=== PATIENT | male | born 1945 | race Caucasian/White ===

== ENCOUNTER 2018-12-30 16:04 | Emergency (ER) | payer MEDICARE ==
[2018-12-30] MEDS ORDERED: NS 0.9% 1000 ML** 2,000 ML IV ONE (17:33)
[2018-12-30] MEDS ORDERED: cloNIDine TAB* 0.1 MG PO ONE (17:44)
--- NOTE | 2018-12-30 17:46 | ED ---
Abdominal Pain/Male - HPI Summary HPI Summary: 73 yo male presents with diarrhea. He tells me that he has had had a bowel movement for 2 days, which is unusual for him. Last night he had one large BM and some lower abdominal cramping. He went to bed. This morning he felt fine, had coffee with his breakfast, and then went to [employer] festival with his . While at the festival he began to have generalized abdominal cramping again and had a large BM. He came to the ED because abdominal cramping continued. Currently he feels improved after having another large BM in the ED, but the abdominal cramping returns before having another a BM. He denies fever, chills, headache, dizziness, SOB, chest pain, nausea, vomiting, dysuria. He denies drug or alcohol use today. His BP is very high today. 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 He tells me that his PCP placed him on a holter monitor to detect for underlying conditions and he is scheduled to follow up with PCP angelia the next 2 weeks. He was not placed on any medication for HTN. He does not smoke and admits to drinking very rarely. - History of Current Complaint Chief Complaint: EDAbdPain Stated Complaint: ABD PAIN PER EMS Time Seen by Provider: 12/30/18 17:35 Hx Obtained From: Patient Onset/Duration: Sudden Onset Timing: Constant Severity Initially: Severe Severity Currently: Severe Pain Intensity: 8 Pain Scale Used: 0-10 Numeric - Allergies/Home Medications Allergies/Adverse Reactions: Allergies Allergy/AdvReac Type Severity Reaction Status Date / Time environmental sx Allergy Runny Nose Uncoded 12/27/13 14:38 PMH/Surg Hx/FS Hx/Imm Hx Endocrine/Hematology History: Denies: Hx Anticoagulant Therapy, Hx Diabetes Cardiovascular History: Denies: Hx Angina, Hx Cardiac Arrest, Hx Congestive Heart Failure, Hx Coronary Artery Disease, Hx Hypotension, Hx Hypertension Respiratory History: Denies: Hx Asthma Neurological History: Denies: Hx CVA, Hx Headaches, Hx Migraine Psychiatric History: Denies: Hx Anxiety, Hx Depression - Surgical History Surgical History: Yes Surgery Procedure, Year, and Place: right knee arthroscopy 2013 - Immunization History Immunizations Up to Date: Yes Infectious Disease History: No Infectious Disease History: Denies: Hx Hepatitis, Hx Shingles, Traveled Outside the [place] in Last 30 Days - Family History Known Family History: Positive: Hypertension - Social History Lives: With Family Alcohol Use: Occasionally Substance Use Type: Reports: None Smoking Status (MU): Never Smoked Tobacco Review of Systems Constitutional: Negative Eyes: Negative ENT: Negative Cardiovascular: Negative Respiratory: Negative Positive: Abdominal Pain, Diarrhea Genitourinary: Negative Musculoskeletal: Negative Skin: Negative Neurological: Negative Psychological: Normal All Other Systems Reviewed And Are Negative: Yes Physical Exam - Summary Physical Exam Summary: GENERAL: NAD. WDWN. No pain distress. SKIN: No rashes, sores, or open wounds. HEENT: Head: AT/NC Eyes: PERRLA. EOM intact. NECK: Supple. Nontender. No lymphadenopathy. CHEST: CTAB. No r/r/w. No accessory muscle use. Breathing comfortably and in no distress. CV: RRR. Without m/r/g. Pulses intact. Brisk cap refill. No JVD. ABDOMEN: Soft. NTTP. No distention or guarding. No organomegaly. No CVA tenderness. Bowel sounds normoactive. No pusitile mass. NEURO: Alert. PSYCH: Age appropriate behavior. Triage Information Reviewed: Yes Vital Signs On Initial Exam: Initial Vitals Temp Pulse Resp BP Pulse Ox 97.5 F 64 16 219/103 96 12/30/18 16:15 12/30/18 16:15 12/30/18 16:15 12/30/18 16:15 12/30/18 16:15 Vital Signs Reviewed: Yes Diagnostics - Vital Signs Vital Signs (72 hours) 12/30/18 12/30/18 12/30/18 16:15 16:27 16:29 Temperature 97.5 F Pulse Rate 64 Respiratory 16 17 20 Rate Blood Pressure 219/103 219/103 (mmHg) O2 Sat by Pulse 96 Oximetry 12/30/18 12/30/18 12/30/18 16:51 16:57 17:00 Temperature Pulse Rate Respiratory 20 19 17 Rate Blood Pressure 213/93 214/106 (mmHg) O2 Sat by Pulse Oximetry 12/30/18 12/30/18 12/30/18 17:11 17:38 17:57 Temperature Pulse Rate Respiratory 23 13 23 Rate Blood Pressure 217/104 204/93 206/108 (mmHg) O2 Sat by Pulse Oximetry 12/30/18 12/30/18 12/30/18 18:00 18:52 18:57 Temperature Pulse Rate Respiratory 17 31 15 Rate Blood Pressure 198/94 195/102 (mmHg) O2 Sat by Pulse Oximetry 12/30/18 12/30/18 12/30/18 19:00 19:27 19:57 Temperature Pulse Rate Respiratory 22 20 19 Rate Blood Pressure 191/97 214/106 (mmHg) O2 Sat by Pulse Oximetry 12/30/18 12/30/18 12/30/18 20:00 20:27 20:57 Temperature Pulse Rate Respiratory 15 17 22 Rate Blood Pressure 213/97 161/88 (mmHg) O2 Sat by Pulse Oximetry 12/30/18 12/30/18 12/30/18 21:00 21:27 21:57 Temperature Pulse Rate Respiratory 20 20 16 Rate Blood Pressure 142/77 148/82 (mmHg) O2 Sat by Pulse Oximetry 12/30/18 12/30/18 22:01 22:30 Temperature 97.9 F Pulse Rate 74 Respiratory 25 16 Rate Blood Pressure 138/89 (mmHg) O2 Sat by Pulse 99 Oximetry - Laboratory Lab Results: Laboratory Tests 12/30/18 12/30/18 12/30/18 17:40 17:49 17:49 WBC 10.2 RBC 5.13 Hgb 15.1 Hct 44 MCV 87 MCH 30 MCHC 34 RDW 14 Plt Count 96 L MPV 9.4 Neut % (Auto) 80.9 Lymph % (Auto) 13.0 [place] % (Auto) 4.6 Eos % (Auto) 1.4 Baso % (Auto) 0.1 Absolute Neuts (auto) 8.2 H Absolute Lymphs (auto) 1.3 Absolute Monos (auto) 0.5 Absolute Eos (auto) 0.1 Absolute Basos (auto) 0.0 Absolute Nucleated RBC 0.0 Nucleated RBC % 0.0 Sodium 142 Potassium 4.0 Chloride 110 Carbon Dioxide 24 Anion Gap 8 BUN 22 Creatinine 1.20 H Est GFR ( Amer) 72.2 Est GFR (Non-Af Amer) 59.7 BUN/Creatinine Ratio 18.3 Glucose 125 H Lactic Acid Calcium 9.3 Total Bilirubin 0.80 AST 20 ALT 15 Alkaline Phosphatase 44 Total Creatine Kinase C-Reactive Protein 3.32 Total Protein 7.3 Albumin 4.3 Globulin 3.0 Albumin/Globulin Ratio 1.4 Amylase 33 Lipase < 10 L Urine Color Yellow Urine Appearance Cloudy Urine pH 5.0 Ur Specific [place] 1.025 Urine Protein 1+(30 mg/dl) A Urine Ketones 1+ A Urine Blood 2+ A Urine Nitrate Negative Urine Bilirubin Negative Urine Urobilinogen Negative Ur Leukocyte Esterase 2+ A Urine WBC (Auto) 2+(11-20/hpf) A Urine RBC (Auto) 3+(>10/hpf) A Ur Squamous Epith Cells Present A Urine Bacteria Absent Urine Glucose Negative 12/30/18 12/30/18 17:49 17:49 WBC RBC Hgb Hct MCV MCH MCHC RDW Plt Count MPV Neut % (Auto) Lymph % (Auto) [place] % (Auto) Eos % (Auto) Baso % (Auto) Absolute Neuts (auto) Absolute Lymphs (auto) Absolute Monos (auto) Absolute Eos (auto) Absolute Basos (auto) Absolute Nucleated RBC Nucleated RBC % Sodium Potassium Chloride Carbon Dioxide Anion Gap BUN Creatinine Est GFR ( Amer) Est GFR (Non-Af Amer) BUN/Creatinine Ratio Glucose Lactic Acid 0.9 Calcium Total Bilirubin AST ALT Alkaline Phosphatase Total Creatine Kinase 261 H C-Reactive Protein Total Protein Albumin Globulin Albumin/Globulin Ratio Amylase Lipase Urine Color Urine Appearance Urine pH Ur Specific [place] Urine Protein Urine Ketones Urine Blood Urine Nitrate Urine Bilirubin Urine Urobilinogen Ur Leukocyte Esterase Urine WBC (Auto) Urine RBC (Auto) Ur Squamous Epith Cells Urine Bacteria Urine Glucose Result Diagrams: 12/30/18 17:49 12/30/18 17:49 Lab Statement: Any lab studies that have been ordered have been reviewed, and results considered in the medical decision making process. - Radiology Abdomen Radiology Interpretation Completed By: Radiologist Summary of Radiographic Findings: IMPRESSION: Moderate colonic fecal load. Clinical correlation with constipation. - CT abd pelv with po CT Interpretation Completed By: Radiologist Summary of CT Findings: IMPRESSION: Right hydronephrosis and hydroureter with perinephric stranding. No obstructing. calculus. Calculus in the bladder lumen measuring 3 mm. Findings represent recent passage. of calculus in the bladder. Re-Evaluation - Re-Evaluation First Eval Re-Evaluation Time: 17:30 Change: Worse Comment: Pt now nauseous and continues to have large formed BMs. No change in pain. Second Eval Re-Evaluation Time: 20:00 Comment: Pt now with right flank pain and states his pain could be a kidney stone as he has had these in the past. Will change CT with contrast to ONLY po contrast. BP still elevated 2 hours s/p clonidine - discussed with Dr. Vazquez and will give him hydralazine 10mg IV. Third Eval Re-Evaluation Time: 21:32 Change: Improved Comment: Improved pain s/p toradol. BP improved s/p hyralazine. Discussed CT results Abdominal Pain Male Course/Dx - Course Course Of Treatment: In the ED, he had a large BM that was well formed and had no visible blood. He rates his abdominal pain 8-10/10 - is noted to be sitting comfortably in a chair texting and laughing with me and female friend with him. Regarding his HTN, he was given Clonidine 0.1mg po with little change in his BP after [address] Vazquez and he was given hydralazine 10mg IV. During the ED course he began to have less and less abdominal discomfort, but began to have right flank pain and nausea. States that he has had kidney stones in the past and this feels the same. He was given toradol for his discomfort with complete resolution of his pain and zofran for his nausea which improved. CT with po contrast was ordered to eval for urethral stone vs diverticulitis/inflammatory bowel. CT positive for calculi as above. UA with leuks, but this was a dirty catch as pt refused to use the cleansing wipe. Discussed results with pt. BP significantly improved to 138/89 upon dc. Will rx for tramadol and flomax. He has an appointment with his PCP scheduled for Tuesday - advised to keep this for f/u. - Diagnoses Provider Diagnoses: Urethral stone, Constipation, Hypertension Discharge - Sign-Out/Discharge Documenting (check all that apply): Patient Departure Patient Received Moderate/Deep Sedation with Procedure: No - Discharge Plan Condition: Stable Disposition: HOME Prescriptions: Tamsulosin CAP* [Flomax CAP*] 0.4 mg PO BEDTIME #7 cap traMADol TAB* [Ultram*] 50 mg PO Q12H PRN #6 tab MDD 2 PRN Reason: Pain Patient Education Materials: Kidney Stones (ED), Hypertension (ED) Referrals: No Primary Care Phys,NOPCP [Primary Care Provider] - Andry,Ritchie, MD [Medical Doctor] - As Soon As Possible Additional Instructions: If you develop a fever, shortness of breath, chest pain, new or worsening symptoms - please call your PCP or go to the ED immediately. Your blood pressure was high at todays visit. Please see your primary provider on tuesday as scheduled for a recheck. Please take the TRAMADOL as directed if needed for pain Take the flomax daily at bedtime for 1 week or until you pass your kidney stone. Drink plenty of clear fluids to stay hydrated - Billing Disposition and Condition Condition: STABLE Disposition: Home
[2018-12-30 18:02] LABS: Urine Appearance Cloudy; Urine Bacteria Absent (Absent); Urine Bilirubin Negative (Negative); Urine Blood 2+ (Negative); Urine Color Yellow; Urine Glucose Negative (Negative); Urine Ketones 1+ (Negative); Urine Nitrite Negative (Negative); Urine Protein 1+(30 mg/dL) (Negative); Urine Red Blood Cell 3+(>10/hpf) (Absent); Urine Specific Gravity 1.025 (1.010-1.030); Urine Squamous Epithelial Cell Present (Absent); Urine Urobilinogen Negative (Negative); Urine White Blood Cell 2+(11-20/hpf) (Absent)
[2018-12-30 18:07] LABS: ABS Eosinophils 0.1 10^3/ul (0-0.6); ABS Lymphocytes 1.3 10^3/ul (1.0-4.8); ABS Monocytes 0.5 10^3/ul (0-0.8); ABS Neutrophils 8.2 10^3/ul (1.5-7.7); Eosinophil % 1.4 %; Hematocrit 44 % (42-52); Hemoglobin 15.1 g/dL (14.0-18.0); Mean Corpuscular HGB Conc 34 g/dL (31-36); Mean Corpuscular Hemoglobin 30 pg (27-31); Mean Corpuscular Volume 87 fL (80-94); Mean Platelet Volume 9.4 fL (7.4-10.4); Platelet Count 96 10^3/uL (150-450); Red Blood Count 5.13 10^6 /uL (4.18-5.48); Red Cell Distribution Width 14 % (10-15); White Blood Count 10.2 10^3/uL (3.5-10.8)
[2018-12-30 18:14] LABS: ALT 15 U/L (7-52); AST 20 U/L (13-39); Albumin 4.3 g/dL (3.2-5.2); Albumin/Globulin Ratio 1.4 (1-3); Alkaline Phosphatase 44 U/L (34-104); Amylase 33 U/L (29-103); Anion Gap 8 mmol/L (2-11); BUN/Creatinine Ratio 18.3 (8-20); Blood Urea Nitrogen 22 mg/dL (6-24); C Reactive Protein 3.32 mg/L (<8.01); CO2 Carbon Dioxide 24 mmol/L (22-32); Calcium 9.3 mg/dL (8.6-10.3); Chloride 110 mmol/L (101-111); EGFR African American 72.2 (>60); EGFR Non-African American 59.7 (>60); Glucose 125 mg/dL (70-100); Sodium 142 mmol/L (135-145); Total Protein 7.3 g/dL (6.4-8.9)
[2018-12-30] MEDS ORDERED: Ondansetron INJ* 2 MG/ML VIAL IV ONE (18:48)
[2018-12-30] MEDS ORDERED: NS 0.9% 1000 ML** 1,000 ML IV ONE (18:48)
[2018-12-30] MEDS ORDERED: Iodixanol* (CONTRAST) 320 MG/ML 100 ML SDV IV ONE (18:53)
[2018-12-30] MEDS ORDERED: hydrALAZINE IV* 20 MG/ML VIAL IV SLOW PU ONE (20:04)
[2018-12-30] MEDS ORDERED: Ketorolac INJ* 30 MG/ML 1 ML VIAL IV ONE (20:25)
[2018-12-30] MEDS ORDERED: traMADol TAB* 50 MG PO ONE (21:42)
[2018-12-30] MEDS ORDERED: Tamsulosin CAP* 0.4 MG PO ONE (21:43)
[2018-12-30 22:31] VITALS: BP 138/89
[2019-01-01 13:59] LABS: Neisseria gonorrhoeae (GC) RNA Negative (Negative)
== END 2018-12-30 22:30 | disposition home or self-care (01) ==
LOC: ED 16:04
DX: K59.00 Constipation, unspecified (principal); N21.1 Calculus in urethra; I10 Essential (primary) hypertension; N13.39 Other hydronephrosis
CPT/HCPCS: 36415; 74019; 74176; 80053; 81003; 81015; 82150; 82550; 83605; 83690; 85025; 85060; 86140; 87040; 87086; 87491; 87591; 96361; 96374; 96375; 99284; A9270-GY; J0360; J1885; J2405